=== PATIENT | male | born 1960 | race Caucasian/White ===

== ENCOUNTER 2017-08-27 13:18 | Emergency (ER) | payer OTHER, SELFPAY ==
[2017-08-27] MEDS ORDERED: Morphine 10 MG/ML VIAL ONE (14:20)
[2017-08-27] MEDS ORDERED: Ondansetron ODT 4 MG TAB ONE (14:20)
[2017-08-27] MEDS ORDERED: Clindamycin 150 MG CAP ONE (14:21)
== END 2017-08-27 14:40 | disposition home or self-care (01) ==
LOC: MADERS 13:18
DX: K04.7 Periapical abscess without sinus (principal); F17.210 Nicotine dependence, cigarettes, uncomplicated
CPT/HCPCS: 96372; J2270; Q0162

== ENCOUNTER 2019-03-30 19:28 | Emergency (ER) | payer OTHER ==
[2019-03-30] MEDS ORDERED: Diazepam 5 MG TAB ONE (19:51)
[2019-03-30] MEDS ORDERED: Morphine 4 MG/ML VIAL ONE (19:52)
[2019-03-30 20:08] LABS: Clarity Clear (Clear)
[2019-03-30 20:09] LABS: Bilirubin Negative (Negative); Blood, Urine Negative (Negative); Glucose, Urine (Dipstick) Negative (Negative); Leukocyte Negative (Negative); Nitrite Negative (Negative); Protein, Urine (Dipstick) Negative (Neg-Trace); Urobilinogen 0.2 mg/dL (0.2-1.0); pH, Urine 5.5 (5.0-9.0)
== END 2019-03-30 20:34 | disposition home or self-care (01) ==
LOC: MADERS 19:28
DX: M54.5 Low back pain (principal); F17.210 Nicotine dependence, cigarettes, uncomplicated
CPT/HCPCS: 81003; 96372; J2270

== ENCOUNTER 2019-07-22 22:54 | Emergency (ER) | payer OTHER, SELFPAY | END 2019-07-22 23:53 | disposition home or self-care (01) | LOC: MADERS 22:54 | DX: M54.5 Low back pain (principal); E78.5 Hyperlipidemia, unspecified; E78.00 Pure hypercholesterolemia, unspecified; I10 Essential (primary) hypertension; F17.210 Nicotine dependence, cigarettes, uncomplicated; Z79.899 Other long term (current) drug therapy | CPT/HCPCS: 99281 ==

== ENCOUNTER 2022-08-25 20:06 | Emergency (ER) | payer BC, OTHER ==
[2022-08-25 21:23] LABS: #Basophils 0.1 thou/uL (0.0-0.2); #Eosinphils 0.2 thou/uL (0.0-0.7); #Lymphocytes 2.2 thou/uL (1.20-3.40); #Monocytes 1.6 thou/uL (0.11-0.59); %Basophils 0.6 % (0.0-1.0); %Eosinophils 1.1 % (0.0-10.0); %Lymphocytes 11.3 % (21.0-51.0); %Monocytes 8.4 % (0.0-10.0); %Neutrophils 78.6 % (42.0-75.0); Hemoglobin 15.2 g/dL (14.0-18.0); Mean Corpuscular Volume 97.1 fl (78.0-98.0); Mean Platelet Volume 8.2 fL (7.4-10.4); Platelet Count 181 thou/uL (130-400); RBC Distribution Width 12.3 % (11.5-14.5); Red Blood Cell (RBC) Count 4.73 mill/uL (4.70-6.10)
[2022-08-25] MEDS ORDERED: Cefepime 2 GM VIAL ONE (21:37)
[2022-08-25] MEDS ORDERED: Sodium Chloride 0.9% 100 ML ONE (21:37)
[2022-08-25] MEDS ORDERED: HYDROcodone/Acetaminophen 5/325 mg Tablet ONE (21:37)
[2022-08-25] MEDS ORDERED: Ondansetron PF 4 MG/2 ML Vial ONE (21:37)
[2022-08-25 21:38] LABS: ALT (SGPT) 38 U/L (8-55); AST (SGOT) 22 U/L (5-34); Albumin 4.1 g/dL (3.4-4.8); Alkaline Phosphatase 104 U/L (40-110); Anion Gap 15 mmol/L (10-20); BUN (Urea Nitrogen) 18 mg/dL (8.4-25.7); Bilirubin, Total 0.8 mg/dL (0.2-1.2); CRP (Inflammatory) 9.25 mg/dL (= or < 0.5); Calc. Creatinine Clearance 0 mL/min (70-130); Calcium 9.1 mg/dL (7.8-10.44); Carbon Dioxide 24 mmol/L (23-31); Chloride 106 mmol/L (98-107); Estimated GFR 78; Globulin 2.5 g/dL (2.4-3.5); Glucose 105 mg/dL (80-115); Potassium 3.8 mmol/L (3.5-5.1); Protein, Total 6.6 g/dL (5.8-8.1); Sodium 141 mmol/L (136-145)
[2022-08-25] MEDS ORDERED: Sodium Chloride 0.9% 250 ML 250 ML ONE (22:06)
== END 2022-08-26 00:51 | disposition short-term general hospital (02) ==
LOC: MADERS 20:06
DX: L03.115 Cellulitis of right lower limb (principal); I10 Essential (primary) hypertension; E78.00 Pure hypercholesterolemia, unspecified; F17.210 Nicotine dependence, cigarettes, uncomplicated; Z79.899 Other long term (current) drug therapy
CPT/HCPCS: 80053; 83605; 85025; 86140; 87040; 96365; 96367; 96375; J0692; J2405; J3370; J3490; J7050

== ENCOUNTER 2024-05-01 14:26 | Outpatient (CLI) | payer MEDICARE | END 2024-05-01 14:27 | disposition home or self-care (01) | LOC: MADLAB 14:26 | PROVIDERS: ATTEND Family Medicine | DX: M25.512 Pain in left shoulder (principal); M19.012 Primary osteoarthritis, left shoulder ==